=== PATIENT | male | born 1955 | race Caucasian/White ===

== ENCOUNTER 2017-07-18 03:03 | Emergency (ER) | payer BC ==
[2017-07-18] MEDS ORDERED: LACTATED RINGERS 1,000 ML IVS ONE (03:10)
--- NOTE | 2017-07-18 03:10 | ED.PDOC ---
History of Present Illness - General Chief Complaint: Problem Stated Complaint: left flank pain Time Seen by Provider: 07/18/17 03:09 Source: patient Exam Limitations: no limitations - History of Present Illness Initial Comments: Ubaldo Diaz 61 y/o male came to ER with sharp non radiating left flank pain 6 hours ago which had been constant at onset felt nauseated and had used heating pad also twist and turn in bed thinking it might be muscle aches and on arrival at ER had subsided.Denies hematuria,diarrhea,vomiting ,chest pain symptoms. Timing/Duration: resolved prior to arrival Severity: moderate Improving Factors: nothing Worsening Factors: nothing Associated Symptoms: other - see hpi Allergies/Adverse Reactions: Allergies Ciprofloxacin [From Cipro] Adverse Reaction (Verified 07/18/17 03:11) Review of Systems - Review of Systems Constitutional: States: no symptoms reported EENTM: States: no symptoms reported Respiratory: States: no symptoms reported Cardiology: States: no symptoms reported Gastrointestinal/Abdominal: States: see HPI Genitourinary: States: no symptoms reported Musculoskeletal: States: no symptoms reported All other Systems: Reviewed and Negative, No Change from Baseline Past Medical History (General) - Patient Medical History Hx Hypertension: Yes Surgical History: tonsillectomy - Social History Hx Alcohol Use: No Hx Substance Use: No Hx Physical Abuse: No Hx Emotional Abuse: No - Activities of Daily Living Patient Lives Alone: No Family Medical History - Family History Father Family History: Unknown Hx Family;Other: kidney stone Physical Exam - Physical Exam General Appearance: Alert, Comfortable, No apparent distress Eye Exam: bilateral normal Ears, Nose, Throat: hearing grossly normal, normal ENT inspection Neck: non-tender, full range of motion, supple, normal inspection Respiratory: chest non-tender, lungs clear, normal breath sounds Cardiovascular/Chest: normal peripheral pulses, regular rate, rhythm, no murmur Peripheral Pulses: radial,right: 2+, radial,left: 2+ Gastrointestinal/Abdominal: normal bowel sounds, non tender, soft, no organomegaly Back Exam: normal inspection, no CVA tenderness, no vertebral tenderness Extremity: no pedal edema, no calf tenderness Neurologic: alert, oriented x 3 Skin Exam: normal color, warm/dry, other - no rashes noted Progress - Progress Progress: 07/18/17 03:28 Vital Signs - 8 hr 07/18/17 03:13 Temperature 98.6 F Pulse Rate [ 69 left] Respiratory 18 Rate Blood Pressure 131/81 [left] O2 Sat by Pulse 96 Oximetry - Results/Orders Results/Orders: 07/18/17 03:10 IV Care:Saline Lock per Protoc QSHIFT Laboratory Results - last 24 hr 07/18/17 07/18/17 03:25 03:25 WBC 10.0 RBC 4.83 Hgb 14.3 Hct 41.8 L MCV 86.5 MCH 29.5 MCHC 34.1 RDW 14.1 Plt Count 163 MPV 9.3 Absolute Neuts (auto) 8.80 H Absolute Lymphs (auto) 0.70 L Absolute Monos (auto) 0.50 Absolute Eos (auto) 0.00 Absolute Basos (auto) 0.10 Neutrophils % 87.8 H Lymphocytes % 6.7 L Monocytes % 4.8 Eosinophils % 0.2 L Basophils % 0.5 PT 11.5 INR 0.990 PTT (SP) 30.8 Sodium 137 Potassium 3.4 L Chloride 105 Carbon Dioxide 25 Anion Gap 10.4 L BUN 16 Creatinine 1.05 BUN/Creatinine Ratio 15.2 Random Glucose 146 H Serum Osmolality 277.6 Calcium 9.2 Magnesium 2.0 Total Bilirubin 0.7 Direct Bilirubin 0.1 Indirect Bilirubin 0.6 AST 33 ALT 29 Alkaline Phosphatase 80 Creatine Kinase 377 H* CK-MB (CK-2) 4.2 CK-MB (CK-2) % Not Reportable Troponin I < 0.02 Serum Total Protein 7.0 Albumin 4.5 Urine Color Yellow Urine Appearance Sl cloudy Urine pH 8.0 H Ur Specific [place] 1.020 Urine Protein Negative Urine Glucose (UA) Negative Urine Ketones Negative Urine Blood Small H Urine Nitrite Negative Urine Bilirubin Negative Urine Urobilinogen 0.2 Ur Leukocyte Esterase Negative Urine RBC 1-3 Urine WBC 0-1 Ur Epithelial Cells 0 Amorphous Sediment 2+ Urine Bacteria Rare - EKG/XRAY/CT CT Ordered: Yes - abd/pelvis:left mid ureteral calculus 4.5 mm and other findings on report Departure - Departure Clinical Impression: Calculus of left ureter, Left flank pain Time of Disposition: 04:39 Disposition: Discharge to Home or Self Care Condition: Fair Departure Forms: ED Discharge - Pt. Copy, Patient Portal Self Enrollment Instructions: DI for Kidney Stones Referrals: Roly Diaz MD [Primary Care Provider] - 1-2 Weeks Additional Instructions: Call up your primary Md's office 18 jul 2017 for Urology consult today with Dr. Lion;return to ER as needed
[2017-07-18 03:23] VITALS: O2SAT 96
[2017-07-18] MEDS ORDERED: KETOROLAC TROMETHAMINE INJ 30 MG/ML VIAL IV ONE (03:29)
[2017-07-18] MEDS ORDERED: HYDROcodone 10MG/APAP 325MG 1 EA TAB PO ONE (03:29)
[2017-07-18] MEDS ORDERED: TAMSULOSIN 0.4 MG CAP PO ONE (03:29)
[2017-07-18] MEDS ORDERED: ONDANSETRON INJ 4 MG/2 ML VIAL IV ONE (03:30)
--- NOTE | 2017-07-18 04:10 | CT ---
NONCONTRAST ABDOMEN AND PELVIC CT EXAMINATION. HISTORY: Left flank pain. PROCEDURE: Using helical technique, thin section axial images were performed through the abdomen and pelvis without the administration of intravenous or oral contrast material. FINDINGS: There is severe obstruction of the left urinary system secondary to a 4.5 mm calcified stone in the mid left ureter. 3 punctate nonobstructing left renal collecting system stones. Suspect 8.5 mm possible hemorrhagic cyst in the left upper renal pole. 1 mm nonobstructing stone in the mid right renal collecting system. Possible 8mm mid right renal hemorrhagic cyst. The left urinary system is otherwise grossly normal on this noncontrast examination. 2.3 cm calcified stone layers dependently in the fluid-filled urinary bladder. Prostate gland is symmetrically enlarged measuring 5.4 cm x 5.9 cm in greatest transverse dimension. Descending colon and sigmoid colon diverticulosis. No evidence of appendicitis, diverticulitis, inflammatory bowel disease, bowel obstruction, extraluminal bowel gas or retroperitoneal hemorrhage. No ascites, free pelvic fluid or evidence of intra-abdominal abscess on this noncontrast examination. The unenhanced gallbladder is grossly normal. Multiple hypodensities throughout the liver. Postcontrast CT versus hepatic ultrasound should be performed for further evaluation. The liver, spleen, pancreas, stomach and duodenum are otherwise grossly normal on this noncontrast examination. Bones appear normal for age. IMPRESSION: 1. Severe obstruction of the left urinary system secondary to a 4.5 mm calcified stone in the mid left ureter. 2. Bilateral punctate nonobstructing stones in both kidneys as described above. 3. Suspect small bilateral hemorrhagic cysts. The sella prove useful for further evaluation. 4. Multiple hypodensities throughout the liver. Postcontrast CT versus ultrasound would prove useful for further evaluation. 5. Descending colon and sigmoid colon diverticulosis without evidence of diverticulitis. 6. 2.3 cm calcification layers dependently in the urinary bladder. 7. Symmetric enlargement of the prostate gland. If clinical concern persists, post intravenous contrast and post oral contrast abdomen and pelvic CT examination should be performed for further evaluation. This exam was performed according to our departmental dose-optimization program, which includes automated exposure control, adjustment of the mA and/or kV according to patient size and/or use of iterative reconstruction technique. Electronically signed by: Karan Garrison MD 07/18/2017 4:09 AM MuluT
[2017-07-18] MEDS ORDERED: HYDROCOD/APAP 10/325 (ER DISP) # 3 tablets PO ONE (04:40)
[2017-07-18 04:53] VITALS: BP 129/68; TEMP 97.8
== END 2017-07-18 04:56 | disposition home or self-care (01) ==
LOC: ER 03:03
DX: N20.1 Calculus of ureter (principal); I10 Essential (primary) hypertension; R11.0 Nausea
CPT/HCPCS: 36415; 74176; 80048; 80076; 81001; 82550; 82553; 84484; 85025; 85610; 85730; J1885; J2405; J7120

== ENCOUNTER 2017-11-28 05:49 | Day surgery (SDC) | payer BC ==
[2017-11-28] MEDS ORDERED: LACTATED RINGERS 1,000 ML ONE (06:11)
[2017-11-28] MEDS ORDERED: MIDAZOLAM INJ 2 MG/2 ML VIAL ONE (07:24)
[2017-11-28] MEDS ORDERED: PROPOFOL 200 MG/20 ML VIAL IV ONE (10:00)
--- NOTE | 2017-11-28 10:17 | OP ---
DATE OF PROCEDURE: PREOPERATIVE DIAGNOSIS: 1. History of colonic polyps. POSTOPERATIVE DIAGNOSIS: 1. Colonic polyps. 2. Internal hemorrhoids. PROCEDURE: 1. Colonoscopy with polypectomy. SURGEON: Ramírez Delgado MD ANESTHESIA: Monitored anesthesia care. ESTIMATED BLOOD LOSS: Less than 5 mL. COMPLICATIONS: None. PROCEDURE: The patient was placed in the left lateral decubitus position. A digital rectal exam was performed and notable for an enlarged prostate. After deep sedation was achieved, the adult Olympus colonoscope was inserted through the anus and into the rectum and then advanced to the cecum under direct visualization. The terminal ileum was intubated. Photodocumentation of the terminal ileum, appendiceal orifice and ileocecal valve was performed. The patient's bowel preparation was fair, [place] Prep Score 6. The endoscope was then progressively withdrawn and the total colonic lumen evaluated. Retroflexion was performed in the rectum. The endoscope was then withdrawn and the procedure terminated. The patient tolerated the procedure well with no immediate complications. FINDINGS: 1. A 1.2 cm semi-pedunculated polyp was seen in the ascending colon. This polyp was completely removed with a hot snare and retrieved for pathology. 2. Two 3 to 4 mm sessile polyps were seen in the ascending colon. These polyps were removed with a cold snare and retrieved for pathology. 3. An 8 mm semi-pedunculated polyp was found in the descending colon. This polyp was removed with a hot snare and retrieved for pathology. 4. Grade 2 non-bleeding internal hemorrhoids were seen in the rectum. IMPRESSION: 1. Colonic polyps status post polypectomies. 2. Grade 2 non-bleeding internal hemorrhoids. RECOMMENDATIONS: 1. Okay to discharge home. 2. Resume prior diet. 3. Resume home medications. 4. Repeat colonoscopy in 3 to 5 years depending on pathology results. 5. Followup with primary care physician as previously scheduled. #[id number] [facility]
[2017-11-28 14:21] VITALS: O2SAT 99
[2017-11-28 14:22] VITALS: BP 130/87; TEMP 97.5
== END 2017-11-28 10:55 | disposition home or self-care (01) ==
LOC: AMB 05:49
PROVIDERS: ATTEND Internal Medicine Gastroenterology
DX: Z12.11 Encounter for screening for malignant neoplasm of colon (principal); D12.2 Benign neoplasm of ascending colon; D12.4 Benign neoplasm of descending colon; K64.1 Second degree hemorrhoids; I10 Essential (primary) hypertension; Z86.010 Personal history of colon polyps; Z79.899 Other long term (current) drug therapy
CPT/HCPCS: 00812; 45385; J2250; J3490; J7120

== ENCOUNTER → 2018-06-26 | Outpatient (CLI) | payer BC | LOC: GMAE 10:32 | PROVIDERS: ATTEND Family Medicine | DX: Z00.00 Encounter for general adult medical examination without abnormal findings (principal) ==

== ENCOUNTER → 2019-06-26 | Outpatient (CLI) | payer MEDICARE, OTHER | LOC: GMAE 11:26 | PROVIDERS: ATTEND Family Medicine | DX: Z12.5 Encounter for screening for malignant neoplasm of prostate (principal); I10 Essential (primary) hypertension | CPT/HCPCS: 84443; G0103 ==